=== PATIENT | female | born 1995 | race Caucasian/White ===

== ENCOUNTER 2017-06-07 23:32 | Observation (INO) ==
--- OUTSIDE RECORDS SUMMARY | 2017-06-08 00:06 | External Medical Summary | Referral Summary ---
:1995 Author Organization [facility] Address [address] [place] [address] [place] García [id number] Care Team Providers Name Role Phone Yves Sanchez Primary Care Physician Encounter [facility] [phone] Date(s): 04/28/16 - 04/28/16 [facility] [address] [place] [address] [place] García [phone] Discharge Diagnosis: Chronic GERD Discharge Diagnosis: Epigastric pain Discharge Disposition: 01-Home or Self Care Attending Physician: Scott Conrad MD Admitting Physician: Scott Conrad MD Referring Physician: Yves Sanchez MD Vital Signs Most recent to oldest [Reference Range]: 1 Temperature Tympanic [36.6-38.1 degC] 37 degC (04/28/16 3:13 PM) Blood Pressure [90-140/60-90 mmHg] 100/60 mmHg (04/28/16 3:13 PM) Problem List Condition Effective Dates Status Health Status Informant GERD (gastroesophageal reflux Active disease)(Confirmed) Allergies, Adverse Reactions, Alerts Substance Reaction Severity Status acetaminophen Active Medications fluticasone 50 mcg/inh nasal spray 2 sprays, Nasal, Daily, # 16 g, 0 Refill(s) Start Date: 04/28/16 Status: Orderedmultivitamin 1 tabs, Oral, Daily, # 30 tabs, 0 Refill(s) Start Date: 04/28/16 Stop Date: 05/28/16 Status: Ordered Results No data available for this section Immunizations No data available for this section Procedures Procedure Date Related Diagnosis Body Site None Social History Social History Type Response Smoking Status Never smoker Assessment and Plan Extracted from: Title: Ambulatory Patient Education Author: Scott Conrad MD Date: Family Medicine Gastroesophageal Reflux Disease, Adult Gastroesophageal reflux disease (GERD) happens when acid from your stomach flows up into the esophagus. When acid comes in contact with the esophagus, the acid causes soreness (inflammation) in the esop hagus. Over time, GERD may create small holes (ulcers) in the lining of the esophagus. CAUSES Increased body weight. This puts pressure on the stomach, making acid rise from the stomach into the esophagus. Smoking. This increases acid production in the stomach. Drinking alcohol. This causes decreased pressure in the lower esophageal sphincter (valve or ring of muscle between the esophagus and stomach) , allowing acid from the stomach into the esophagus. Late evening meals and a full stomach. This increases pressure and acid production in the stomach. A malformed lower esophageal sphincter. Sometimes, no cause is found. SYMPTOMS Burning pain in the lower part of the mid-chest behind the breastbone and in the mid-stomach area. This may occur twice a week or more often. Trouble swallowing. Sore throat. Dry cough. Asthma-like symptoms including chest tightness, shortness of breath, or wheezing. DIAGNOSIS Your caregiver may be able to diagnose GERD based on your symptoms. In some cases, X-rays and other tests may be done to check for complications or to check the condition of your stomach and esophagus. TREATMENT Your caregiver may recommend [id number]-[id number] or prescription medicines to help decrease acid production. Ask your caregiver before starting or adding any new medicines. HOME CARE INSTRUCTIONS Change the factors that you can control. Ask your caregiver for guidance concerning weight loss, quitting smoking, and alcohol consumption. Avoid foods and drinks that make your symptoms worse, such as: Caffeine or alcoholic drinks. Chocolate. Peppermint or mint flavorings. Garlic and onions. Spicy foods. [place] fruits, such as oranges, amanda, or limes. Tomato-based foods such as sauce, chili, salsa, and pizza. Fried and fatty foods. Avoid lying down for the 3 hours prior to your bedtime or prior to taking a nap. Eat small, frequent meals instead of large meals. Wear loose-fitting clothing. Do not wear anything tight around your waist that causes pressure on your stomach. Raise the head of your bed 6 to 8 inches with wood blocks to help you sleep. Extra pillows will not help. Only take yloa-mzm-ylydiuk or prescription medicines for pain, discomfort, or fever as directed by your caregiver. Do not take aspirin, ibuprofen, or other nonsteroidal anti-inflammatory drugs (NSAIDs). SEEK IMMEDIATE MEDICAL CARE IF: You have pain in your arms, neck, jaw, teeth, or back. Your pain increases or changes in intensity or duration. You develop nausea, vomiting, or sweating (diaphoresis). You develop shortness of breath, or you faint. Your vomit is green, yellow, black, or looks like coffee grounds or blood. Your stool is red, bloody, or black. These symptoms could be signs of other problems, such as heart disease, gastric bleeding, or esophageal bleeding. MAKE SURE YOU: Understand these instructions. Will watch your condition. Will get help right away if you are not doing well or get worse. This information is not intended to replace advice given to you by your health care provider. Make sure you discuss any questions you have with your health care provider. Document Released: 06/09/2006 Document Revised: 09/20/2015 Document Reviewed: 03/18/2012 [facility] [place] Patient Information 2016 [place]. No follow up information was provided. Extracted from: Title: Office Visit Note Author: Scott Conrad MD Date: 04/28/16 Assessment/Plan 1.Epigastric pain Ordered: Office Visit Level 4 New 25294 2.Chronic GERD Ordered: Office Visit Level 4 New 56224 Plan:Esophagogastroduodenoscopy I did review the patient's chart including office note performed by her PCPs circular saw filer fromApril 08, 2016. I informed the patient that I would recommend that we would proceed with esophagogas troduodenoscopy for further evaluation of herhistory for GERD/epigastric abdominal painwhich has became refractory to medical management. Risk of endoscopy was discussed with the patient. Risks include but are not inclusive of bleeding and/or perforation requiring surgery. Patient understood and was scheduled.
--- OUTSIDE RECORDS SUMMARY | 2017-06-08 00:06 | External Medical Summary | Continuity of Care Document ---
:1995 Author Organization [facility] Care Team Providers Name Role Phone NATHAN MCQUEEN Unavailable Unavailable Insurance Providers Payer Name Policy Number Subscriber Name Relationship Covcharli [id number] Franca Dill 17 Self / Same As Patient Chief Complaint and Reason for Visit Chief Complaint GI Complaint Reason for Visit Gastroenteritis Problems Medical Problems Problem Onset Date Status Gastroenteritis Unknown Active Medications Medication Dose Route Sig Days/Qty Instructions Order Discontinued Status Date Date Buspirone HCl 15 Mg ORAL NEEDED Active (Buspar) For 5 Anxiety Ondansetron 4 Mg ORAL EVERY 6 4 Qty Active Hcl HOURS PRN 5 NAUSEA Social History No social history. Hospital Discharge Instructions No hospital discharge instructions. Plan of Care Discharge Date 04/08/15 3:10pm Disposition 01 HOME OR SELF-CARE Condition at Discharge Stable Instructions/Education Provided Loperamide (By mouth) Ondansetron (By mouth, Into the mouth) Gastroenteritis (ED) Prescriptions See Medications Section Referrals NATHAN MCQUEEN Additional Instructions/Education Observe a clear liquid diet today, then if your nausea has resolved, you may slowly advance your diet as tolerated. If your vomiting comes back, see your doctor or return to the ER. Take Imodium as needed for diarrhea. Take Prilosec or equivalent 20 mg daily for a week to decrease stomach acid and help your stomach heal. Some of your test results may not be complete prior to your leaving the Emergency Department. The Emergency Department is not authorized to give test results over the phone. Please contact the doctor's office listed in this packet of information for your final results. Follow up with your primary care physician or return to the Emergency Department for worsening or worrisome symptoms. * Emergency Department phone number: [phone], x [phone]* MEDICAL RECORD If you need copies of your X-rays, call [phone]. If you need copies of your medical record, including lab results, a signed authorization for release of records will be required. A telephone call for release of Health Information is not allowed. BILLING Billing can sometimes be confusing and frustrating. To help avoid confusion in the future, please take a moment to acquaint yourself with the billing parties for services. SERVICE BILLING LIBERTARIAN Emergency Room Services [facility] Physician Services [facility] X-rays [facility] Patients will receive bills for services from the appropriate provider. If you have any questions about your [facility] bill, our staff will be happy to assist you. Please call [phone], and ask for the billing department. THANK YOU for choosing [facility] as your emergency care provider! Functional Status No functional status results. Allergies, Adverse Reactions, Alerts Allergen Type Severity Reaction Status Last Updated Acetaminophen Allergy Mild migraines Active 04/08/15 Immunizations No immunization records. Vital Signs Acute Vital Signs Vital Response Date/Time Temperature (Fahrenheit) 98.1 Pulse 73 bpm Respirations 16 Height 5 ft 1 in Weight 108 lb Body Mass Index 20.0 kg/m^2 Results No known relevant diagnostic tests, laboratory data and/or discharge summary. Procedures No known history of procedures. Encounters Encounter Location Date/Time Registered Emergency Room [facility] 04/08/15 2:23pm Recent Diagnosis
--- OUTSIDE RECORDS SUMMARY | 2017-06-08 00:06 | External Medical Summary | Continuity of Care Document ---
:1995 Author Organization [facility] Allergies Active Description Code Type Severity Reaction Onset Reported/ Identified Relationship Clinical to Patient Status Yes acetaminophe F0060 Drug Mild migraines 04/08/2015 n [id number] Aller gy Medications Problems Date Dx Coded Attending Type Code Diagnosis Diagnosed By 04/08/2015 Ot 388.30 04/08/2015 Ot 388.70 04/08/2015 Ot 389.11 04/08/2015 MUSA SMART, Ot 787.03 LUCIANO Garvey 04/08/2015 MUSA SMART, Ot 787.91 LUCIANO Garvey 04/08/2015 MUSA SMART, Ot 789.06 LUCIANO Garvey Procedures Results Encounters ACCT Visit Discharge Status Pt. Type Provider Facility Loc./Unit Complaint No. Date/Time [id number] 04/08/2015 04/08/2015 DIS Emergency [facility] ED [id number] 14:23:00 15:10:00 [facility] LUCIANO [id number] 08/25/2012 Document [id number] 07:32:00 Registration
[2017-06-08] MEDS: SALINE FLUSH 10ml SYRINGE IVF PRN ×2 (01:07→11:54)
--- NOTE | 2017-06-08 01:28 | Emergency Department Report ---
Overdose HPI - General Chief Complaint: Overdose Stated Complaint: OD Time Seen by Provider: 06/07/17 23:57 - History of Present Illness HPI Narrative: 22-year-old female presents with Xanax overdose. Patient apparently sent a text to a friend stating that she wanted to and was taking Xanax to do it. She initially reported taking 5 Xanax now states she is not sure how many. She was brought in by EMS. Initially patient would not respond, would not speak to us. Her parents did come to the hospital. They adopted her as a baby. Her father states that she has been living with a family in town in order to not live with her mother currently. Apparently they unable to make it without yelling. She is able to indicate with him without issues. She has not had any previous suicide attempts as far as he knows. The last year or 2 they have not had as much medication with her. She did come for a day and a half to stay with them and just left this evening to go back home to sleep. Since arriving in the ER, she would follow commands but would not speak. One of the nurses was able to gain some trust with her and she then began speaking. She states she does not remember what she took or that she even sent a text. She does say she has wanted to before because the anxiety is so bad. - Related Data Home Medications Medication Instructions Recorded Confirmed Cetirizine HCl [Zyrtec] 1 cap PO DAILY PRN #0 cap 05/07/16 06/08/17 Previous Rx's Medication Instructions Recorded norgestimate 0.25 mg-ethinyl 1 tab PO DAILY #28 tab 05/12/17 estradiol 35 mcg tablet Zoloft (sertraline) 100 mg tablet 100 mg PO Q24H #90 tab 05/21/17 Allergies Allergy/AdvReac Type Severity Reaction Status Date / Time acetaminophen AdvReac Mild MIGRAINES Verified 06/08/17 00:52 Review of Systems All systems: reviewed and negative except as stated PFSH Patient Stated Medical History Other GI Yes: POSSIBLE IBS, CURRENTLY BEING FOLLOWED BY PCP Hx Urinary Tract Infection Yes: FREQUENT Depression Yes Surgical History: Negative - Social History Smoking status: Never smoker Substance use type: does not use Physical Exam - Limitations Limitations: altered mental status (this seemed to improve during her stay in the emergency department. She was ultimately able to communicate with us, but states she has no memory of what she took or why she took it.) - General General appearance: appears intoxicated - Normal Exams: Head:: Normocephalic without trauma Chest/Respirations:: Clear all [place], with good airflow, and symmetry bilaterally Cardiovascular:: Regular rate and rhythm, without murmur or gallop, Pulses 2+ all extremities, capillary refill, <2 seconds all extremities Abdomen:: Bowel sounds positive, soft, non-tender, non-distended, no hepatosplenomegaly, masses or bruits noted Neurological:: cranial nerves, motor/sensory/cerebellar, exams w/o gross deficits, to observation - Psychiatric Psychiatric exam: Present: other (after speaking with the patient, I am not certain what she did or did not take. However she deftly has dilated pupils, somewhat slurred speech.) Course Vital Signs Temperature 98.3 F 06/07/17 23:32 Pulse Rate 102 H 06/07/17 23:32 Respiratory Rate 15 06/07/17 23:32 Blood Pressure 117/75 06/07/17 23:32 Pulse Oximetry 99 06/07/17 23:32 Temperature 98.3 F 06/07/17 23:32 Pulse Rate 111 H 06/08/17 00:00 Respiratory Rate 12 06/08/17 00:00 Blood Pressure 125/86 06/08/17 00:00 Pulse Oximetry 100 06/08/17 00:00 Overdose - MDM Narrative Medical decision making narrative: Urine drug screen returns negative. This is quite surprising based on the history of having taken extra Xanax and on her exam which shows dilated pupils and slurring of speech. There is some definite dynamics noted with family. Family appears to be wanting to be very supportive, but there is certainly some stress there. Patient states she wishes to sometimes because her anxiety becomes so bad. Remember if she took extra medication tonight or not. Her sertraline was recently increased to 100 mg daily. She also was treated for a UTI, took one dose of Bactrim but did not continue it. She is being referred to urology now. UA does not show obvious infection. Patient was given IV and fluid resuscitation . EKG was normal. Computer read some possible atrial enlargement possible right ventricular conduction delay, I did not notice either in the actual EKG. Hospitalist was contacted, patient will be admitted to ICU for observation until morning. This is to ensure that any drugs that are in her system are clear to out and that she is stable and safe for discharge. Plan is to have psych eval/screening prior to discharge to determine appropriateness of care. - Differential Diagnosis Likely: suicide attempt by multiple drug overdose, poisoning by opiate or related narcotic, drug overdose, acetaminophen overdose, accidental drug ingestion - Lab Data Result diagrams: 06/08/17 00:31 06/08/17 00:31 Lab Results 06/08/17 06/08/17 06/08/17 Range/Units 00:23 00:23 00:31 WBC 16.9 H (4.5-11.0) T/MM3 RBC 4.99 (4.00-5.20) M/MM3 Hgb 14.8 (12-16) GM/DL Hct 43.9 (36-46) % MCV 88.0 (80-100) UM3 MCH 29.7 (26-34) UUG MCHC 33.7 (31-37) GM/DL RDW Std Deviation 38.8 (36.9-50.2) FL Plt Count 284 (130-400) T/MM3 MPV 10.4 (9.4-12.4) UM3 Immature Gran % (Auto) Not performed Neut % (Auto) Not performed Lymph % (Auto) Not performed [place] % (Auto) Not performed Eos % (Auto) Not performed Baso % (Auto) Not performed Neut # Not performed Lymph # Not performed [place] # Not performed Eos # Not performed Baso # Not performed Abs Immat Gran (auto) Not performed Neutrophils % (Manual) 92.0 H (33-66) % Lymphocytes % (Manual) 7.0 L (23-45) % Monocytes % (Manual) 1.0 (0-9.0) % Neutrophils # (Manual) 15.5 H (1.8-7.7) T/MM3 Lymphocytes # (Manual) 1.2 (1-4.8) T/MM3 Monocytes # (Manual) 0.2 (0-0.8) T/MM3 RBC Morph Comment Normal Turbidity (0-20) Sodium (134-144) MEQ/L Potassium (3.6-5) MEQ/L Chloride (98-107) MEQ/L Carbon Dioxide (22-30) MEQ/L Anion Gap (5-15) MEQ/L BUN (7-17) MG/DL Creatinine (0.7-1.2) MG/DL GFR Calculation BUN/Creatinine Ratio (6-26) RATIO Glucose (65-110) MG/DL Calculated Osmolality (261-280) MOSM/KG Calcium (8.4-10.2) MG/DL Total Bilirubin (0.20-1.30) MG/DL Icterus Index (0-7) AST (14-36) U/L ALT (9-52) U/L Alkaline Phosphatase (38-126) U/L Total Protein (6.3-8.2) G/DL Albumin (3.5-5.0) G/DL Globulin (2.4-3.6) G/DL Albumin/Globulin Ratio (1.1-2.2) RATIO Serum , Qual (Negative) Specimen Hemolysis (0-25) Ur Collection Type Urine, clean catch Urine Color Yellow (YELLOW) Urine Clarity Clear Urine pH 5.5 (5.0-8.0) Ur Specific [place] >=1.030 H (1.015-1.025) Urine Protein Trace A (NEGATIVE) Urine Glucose (UA) Negative (NEGATIVE) Urine Ketones Negative (NEGATIVE) Urine Occult Blood Negative (NEGATIVE) Urine Nitrate Negative (NEGATIVE) Urine Bilirubin Negative (NEGATIVE) Urine Urobilinogen 0.2 (NORMAL) EU/DL Ur Leukocyte Esterase Trace A (NEGATIVE) Urinalysis Comment Microscopic not ind. Salicylates (2-20) MG/DL Urine Opiates Screen Negative ng/mL Ur Oxycodone Screen Negative ng/mL Urine Methadone Screen Negative ng/mL Ur Propoxyphene Screen Negative ng/mL Acetaminophen (10-30) UG/ML Ur Barbiturates Screen Negative ng/mL U Tricyclic Antidepress Negative ng/mL Ur Phencyclidine Scrn Negative ng/mL Ur Amphetamines Screen Negative ng/mL U Methamphetamines Scrn Negative ng/mL U Benzodiazepines Scrn Negative ng/mL Urine Cocaine Screen Negative ng/mL U Cannabinoids Screen Negative ng/mL Alcohol, Quantitative (<10) MG/DL 06/08/17 06/08/17 Range/Units 00:31 00:31 WBC (4.5-11.0) T/MM3 RBC (4.00-5.20) M/MM3 Hgb (12-16) GM/DL Hct (36-46) % MCV (80-100) UM3 MCH (26-34) UUG MCHC (31-37) GM/DL RDW Std Deviation (36.9-50.2) FL Plt Count (130-400) T/MM3 MPV (9.4-12.4) UM3 Immature Gran % (Auto) Neut % (Auto) Lymph % (Auto) [place] % (Auto) Eos % (Auto) Baso % (Auto) Neut # Lymph # [place] # Eos # Baso # Abs Immat Gran (auto) Neutrophils % (Manual) (33-66) % Lymphocytes % (Manual) (23-45) % Monocytes % (Manual) (0-9.0) % Neutrophils # (Manual) (1.8-7.7) T/MM3 Lymphocytes # (Manual) (1-4.8) T/MM3 Monocytes # (Manual) (0-0.8) T/MM3 RBC Morph Comment Turbidity < 20 (0-20) Sodium 144 (134-144) MEQ/L Potassium 3.3 L (3.6-5) MEQ/L Chloride 105 (98-107) MEQ/L Carbon Dioxide 24 (22-30) MEQ/L Anion Gap 15 (5-15) MEQ/L BUN 13.0 (7-17) MG/DL Creatinine 0.7 (0.7-1.2) MG/DL GFR Calculation 104 BUN/Creatinine Ratio 19 (6-26) RATIO Glucose 115 H (65-110) MG/DL Calculated Osmolality 278 (261-280) MOSM/KG Calcium 9.6 (8.4-10.2) MG/DL Total Bilirubin 0.80 (0.20-1.30) MG/DL Icterus Index < 2 (0-7) AST 21 (14-36) U/L ALT 31 (9-52) U/L Alkaline Phosphatase 69 (38-126) U/L Total Protein 7.8 (6.3-8.2) G/DL Albumin 4.8 (3.5-5.0) G/DL Globulin 3.0 (2.4-3.6) G/DL Albumin/Globulin Ratio 1.6 (1.1-2.2) RATIO Serum , Qual Negative (Negative) Specimen Hemolysis < 15 (0-25) Ur Collection Type Urine Color (YELLOW) Urine Clarity Urine pH (5.0-8.0) Ur Specific [place] (1.015-1.025) Urine Protein (NEGATIVE) Urine Glucose (UA) (NEGATIVE) Urine Ketones (NEGATIVE) Urine Occult Blood (NEGATIVE) Urine Nitrate (NEGATIVE) Urine Bilirubin (NEGATIVE) Urine Urobilinogen (NORMAL) EU/DL Ur Leukocyte Esterase (NEGATIVE) Urinalysis Comment Salicylates < 1.0 L (2-20) MG/DL Urine Opiates Screen ng/mL Ur Oxycodone Screen ng/mL Urine Methadone Screen ng/mL Ur Propoxyphene Screen ng/mL Acetaminophen < 10 L (10-30) UG/ML Ur Barbiturates Screen ng/mL U Tricyclic Antidepress ng/mL Ur Phencyclidine Scrn ng/mL Ur Amphetamines Screen ng/mL U Methamphetamines Scrn ng/mL U Benzodiazepines Scrn ng/mL Urine Cocaine Screen ng/mL U Cannabinoids Screen ng/mL Alcohol, Quantitative <10 (<10) MG/DL Disposition Clinical Impression: Drug overdose [place]: 02 [place] [facility] [place] Care Condition: Stable Prescriptions: No Action Cetirizine HCl [Zyrtec] 1 cap PO DAILY PRN #0 cap PRN Reason: PRN ORDERS norgestimate 0.25 mg-ethinyl estradiol 35 mcg tablet 1 tab PO DAILY #28 tab Zoloft (sertraline) 100 mg tablet 100 mg PO Q24H #90 tab Time of Disposition: 01:34 - Seen By: physician
[2017-06-08] MEDS ORDERED: CETIRIZINE 10 MG TABLET PO PRN (02:22)
[2017-06-08] MEDS ORDERED: SERTRALINE 100 MG TABLET PO SCH (02:22)
[2017-06-08] MEDS ORDERED: ONDANSETRON 4 MG/2 ML INJECTION IVP PRN (02:22)
[2017-06-08 02:26] VITALS: BMI 18.8
--- NOTE | 2017-06-08 03:15 | History & Physical Report ---
<Harpreet Glass I - Last Filed: 06/08/17 03:10> History of Present Illness Date: 06/08/17 Chief complaint: I don't remember what happened HPI: Franca is a pleasant, somewhat histrionic 22 year old CF pt who presented to the ER with a possible Xanax ingestion up to 5 tablets in an attempt to harm herself. Apparently she sent a text to her friend stating that she was going to do this to hurt or kill herself. She admits to having severe anxiety with ' panic attacks,' and fears this may be what happened tonight but she's not sure and states that she doesn't remember the events that preceded her ER visit. "Sometimes I get so anxious that I panic and black out. I remember waking up and I was in the hospital!" In the ER, she was initially described as minimally responsive and avoidant, though at no time was she felt to be in respiratory compromise. Her UDS proved to be negative for benzodiazepines, but due to her depressed mental status at the time, it was felt most appropriate to observe her overnight for serial examination and elucidation of the most appropriate disposition in the daylight hours. By the time she arrived on the floor when I saw her, she was alert, oriented, pleasant and smiling. Review of Systems - Constitutional Constitutional: Present: headache(s). Absent: fever(s) - EENMT Eyes: Absent: blurry vision, change in vision - Cardiovascular Cardiovascular: Absent: chest pain, palpitations, syncope - Respiratory Respiratory: Absent: cough - Gastrointestinal Gastrointestinal: Absent: abdominal pain - Genitourinary Genitourinary: Present: dysuria (And hematuria, for which she has a urology appointment already established in the near future) - Neurological Neurological: Absent: abnormal speech, focal weakness - Psychiatric Psychiatric: Present: anxiety, panic attacks, suicidal ideation [facility] Patient Stated Medical History Other GI Yes: POSSIBLE IBS, CURRENTLY BEING FOLLOWED BY PCP Hx Urinary Tract Infection Yes: FREQUENT Depression Yes Surgical History: Negative Family History: DM, Anxiety, she was apparently adopted but mother has MS - Social History Smoking status: Never smoker Substance use type: does not use Alcohol intake: current (Rare, not to intoxication) Alcohol intake frequency: holidays/special occasions only Medications Home Medications Medication Instructions Recorded Confirmed Type Cetirizine HCl [Zyrtec] 1 cap PO DAILY PRN #0 cap 05/07/16 06/08/17 History Allergies Allergy/AdvReac Type Severity Reaction Status Date / Time acetaminophen AdvReac Mild MIGRAINES Verified 06/08/17 00:52 Exam Vital Signs: Temperature 98.7 F 06/08/17 02:15 Pulse Rate 100 06/08/17 02:06 Respiratory Rate 12 06/08/17 02:00 Blood Pressure 121/78 06/08/17 02:00 Pulse Oximetry 99 06/08/17 02:00 Telemetry Rhythm: Sinus Rhythm Height/Weight/BMI: Height 5 ft 2 in Weight 46.8 kg Body Mass Index 18.8 - Constitutional Present: no acute distress, well nourished, well developed - Routine HEENT Exam Head: Present: normocephalic, atraumatic Eye: Present: EOMI, PERRL ENT: Present: mucous membranes moist - Routine Neck Exam Present: supple, full ROM. Absent: JVD - Routine Respiratory Exam Present: respiratory distress. Absent: accessory muscle use, dyspnea - Routine Cardiovascular Exam Present: RRR, S1, S2, no murmur - Routine Skin Exam Present: intact. Absent: lesions, rash - Routine Neurological Exam Present: alert, oriented X3, CN II-XII intact. Absent: sensory deficit, motor deficit - Routine Psychiatric Exam Present: anxious. Absent: suicidal ideation - Additional findings Additional findings: Examination performed using telemedicine equipment with the assistance of the bedside RN Results - Labs CBC & Chem 7: 06/08/17 00:31 06/08/17 00:31 Assessment and Plan (1) Drug overdose Current visit: Yes Status: Acute Ms. Dill may or may not have ingested Xanax in an attempt to harm herself last evening. It does appear clear that she has anxiety and is apprehensive about speaking of certain details of the events from prior to her arrival. She did admit that at times her anxiety/panic feelings make her want to , she has never had a similar attempt/gesture with overdose in the past. She was described be the ER as initially being quite somnolent and appearing intoxicated , this could fit with a short acting benzodiazepine as several hours later when I assessed her she was A&O, pleasant. Plan to observe overnight and consult case management/psych screener for further evaluations and elucidation of an appropriate disposition. POC was discussed with the patient at the time of my evaluation and she expressed understanding and a desire to proceed. Will provide further symptommatic, supportive, and diagnostic cares as the current workup, or changes in her clinical scenario indicate. 06/08/17 03:21 Hospital Course Summary Disclaimer: The visit summary below is not to be considered part of the above Progress Note. <Beltran Granda - Last Filed: 06/08/17 11:01> History of Present Illness Date: 06/08/17 [facility] Patient Stated Medical History Other GI Yes: POSSIBLE IBS, CURRENTLY BEING FOLLOWED BY PCP Hx Urinary Tract Infection Yes: FREQUENT Depression Yes Exam Vital Signs: Temperature 99.7 F 06/08/17 07:00 Pulse Rate 73 06/08/17 08:00 Respiratory Rate 20 06/08/17 08:00 Blood Pressure 116/76 06/08/17 08:00 Pulse Oximetry 99 06/08/17 08:00 Height/Weight/BMI: Height 1.57 m Weight 47.1 kg Body Mass Index 18.8 Results - Labs CBC & Chem 7: 06/08/17 00:31 06/08/17 00:31 Assessment and Plan (1) Drug overdose Current visit: Yes Status: Acute Resuscitation Status: Full Code Assessment and Plan: Have independently interviewed and examined pt. Chart reviewed. Above note reviewed and concur. CC: Anxiety/panic. Xanax overdose. HPI: 22 y/o WF present to [facility] [place] secondary to Xanax overdose. Patient has no clear recollection of what happened. Remembers driving home from parents last night. Know was having problems with increased anxiety and panic-when these symptoms occur, she'll 'disconnect' - will be functional, but have no recollection of what happens. Initially reported to ED than she took 5 Xanax, but later uncertain how much she took. Medically, has been having bowel problems - will eat and 'it goes right though me.' No blood in stool. Notes ab cramping and bloating. Was feeling very sick at stomach yesterday. Also, found recently to have microscopic hematuria - to see urologist in near future. Initially withdrawn in ED. Has since opened up. PMHx: Depression/anxiety/panic. ALL: Tylenol Med: see mar SHx: . Lives with friends. No smoke. Denies recent ETOH. Denies drug use. FHx: Adopted. Mother has MS ROS: As in HPI. Gen: slight chills before admission. Lungs: minor cough-no SOA or congestion. Ab: ab pain and diarrhea. Remainder of 10 point ROS reviewed and negative. EXAM GEN: WDWN petite female. Awake and alert. HEENT: NC/AT PERRLA EOMI MMM Neck: midline, supple. No tracheal deviation Lungs: Clear bilaterally. No crackles, wheezes or distress CV: tachy, regular. No murmur AB; soft nt/nd +BS EXT: thin and without edema Skin: warm and dry MS: Moves ext spontaneously NERUO: CN II-XII intact. No focal deficits PSYCH: awake alert appropriate. Thoughts linear. Communicates well. Not agitated or restless Lab: reviewed Assessment: Xanax overdose - ? intensional vs unintentional Depression/anxiety/panic Leukocytosis Hypokalemia (POS) Recent microscopic hematuria - UA normal at presentation Diarrhea - likely irritable bowel Plan OBS in CCU for close monitoring, safe supportive environment. Continue home medications. Regular diet. Replace potassium. Check TSH secondary to depression. Psych consult for treatment recommendations. Hospital Course Summary Disclaimer: The visit summary below is not to be considered part of the above Progress Note. Hospital Course: 06/08/17 OBS Assessment: Xanax overdose - ? intensional vs unintentional Depression/anxiety/panic Leukocytosis Hypokalemia (POS) Recent microscopic hematuria - UA normal at presentation Diarrhea - likely irritable bowel Plan OBS in CCU for close monitoring, safe supportive environment. Continue home medications. Regular diet. Replace potassium. Check TSH secondary to depression. Psych consult for treatment recommendations.
--- NOTE | 2017-06-08 22:29 | 24 Hour Neuropsychiatic Eval ---
Date of Admission: 06/08/17 01:21 Chief complaint: "I dont know what happened" History of Present Illness: 22 Y/O CF with a hx of Depression and anxiety seen in ICU after intentional OD on 5 Zoloft in a SA. PT reportedly had a panic attack and took the OD with the intent of harming herself. She then texted several friends and told them she had intent to harm herself and ambulance was called. On face to face the pt states she was having a panic attack and "blacked out" and does not remember the events. She states she does not remember if she was trying to harm herself or not. She denies S/I but is impulsive and parents do not feel she is safe to go home. STRESSORS: PT states she has had numerous losses in the last few years and has a long hx of anxiety and depression. PSYCH ROS: Pt does report feeling depressed with low energy and motivation, decreased interest, issues with sleep and appetite, and feelings of guilt. She reports she was having S/I last night. She reports having panic attacks which are unprovoked. She reports a hx of trauma as an adult and reports some nightmares, flashbacks, and hypervigilance. Reports a one week period where she had a decreased need for sleep and high energy which was outside her norm several years ago but it did not cause major distress. Denies psychosis. PAST PSYCH: Prescribed Zoloft 100mg by PCP and feels it is helpful. Reports taking antidepressants as a teen but not sure of the name. Hx of depression since age 13. Never tried to harm herself and has never been hospitalized. SUBSTANCE ABUSE: Denies [facility] Patient Stated Medical History Other GI Yes: POSSIBLE IBS, CURRENTLY BEING FOLLOWED BY PCP Hx Urinary Tract Infection Yes: FREQUENT Depression Yes Surgical History: Negative - Social History Smoking status: Never smoker Review of Systems - Psychiatric Psychiatric: Present: as per HPI, anxiety, depression, mood swings Mental Status Exam Vitals: Last Vital Signs Temp 98.1 F 06/08/17 11:08 Pulse 74 06/08/17 16:23 Resp 17 06/08/17 16:00 BP 116/73 06/08/17 16:00 Pulse Ox 99 06/08/17 11:08 Height: 1.57 m Weight: 47.1 kg - Mental Status Exam Muscle Strength/Tone: Normal Dressing: Casual Grooming: Good Attitude: Guarded Motor Activity: Retardation Eye Contact: Fair Speech: Normal Volume: Normal Rhythm: Appropriate Rhythm Orientation: Oriented X4 Mood: Depressed Affect: Sad Rate of Thoughts: Appropriate Rate Thought Organization: Organized Associations: Intact Abstract Reasoning: Poor abstract reasoning Thought Content: Normal Perception/Psychotic: Perception Normal Language: Naming Intact Memory: Grossly Intact Suicidal Ideation: Intermittent Homicidal Ideation: None Insight: Poor Judgement: Poor Impulse Control: Poor - Laboratory Result Diagrams: 06/08/17 00:31 06/08/17 00:31 Assessment and Plan (1) Major depressive disorder Qualifiers: Major depression recurrence: recurrent Major depression episode severity: severe Current visit: Yes Status: Acute Continue medical management. Discussed case with parents who does not feel pt is safe to go home. Recommend IP psych treatment when medically stable. Pt is not allowed to leave AMA
--- NOTE | 2017-06-09 11:46 | Progress Note ---
Subjective: F/U: Alprazolam overdose Doing well medically today. Breathing well. Eating well. No ab pain. Urinating well. No f/c. Stable when up and ambulatory. Objective Vital signs: Temperature 97.4 F 06/09/17 08:00 Pulse Rate 99 06/09/17 08:00 Respiratory Rate 16 06/09/17 08:00 Blood Pressure 112/76 06/09/17 08:00 Pulse Oximetry 99 06/09/17 08:00 Height/Weight/BMI: Height 1.57 m Weight 47.5 kg Body Mass Index 18.8 - Constitutional Present: no acute distress, well nourished, well developed, cooperative. Absent : somnolent, obtunded - Routine HEENT Exam Head: Present: normocephalic, atraumatic Eye: Present: EOMI, PERRL ENT: Present: mucous membranes moist - Routine Respiratory Exam Present: CTA bilaterally. Absent: respiratory distress, wheezes, crackles - Routine Cardiovascular Exam Present: RRR, no murmur - Routine Abdominal Exam Present: soft, normoactive bowel sounds, non distended, non tender - Routine Extremities Exam Present: no edema. Absent: cyanosis, clubbing - Routine Musculoskeletal Exam Musculoskeletal: Present: no clubbing or cyanosis, normal strength - Routine Skin Exam Present: dry, warm - Routine Neurological Exam Present: alert, oriented X3, CN II-XII intact, moving all extremities, vision grossly intact, hearing grossly intact. Absent: altered mental status - Routine Psychiatric Exam Present: normal affect. Absent: anxious, agitated Results - Labs CBC & Chem 7: 06/09/17 05:02 06/09/17 05:02 Assessment and Plan (1) Drug overdose Current visit: Yes Status: Acute DVT Prophylaxis: SCD's Resuscitation Status: Full Code Assessment and Plan: Assessment: Overdose ? Xanax or Zoloft Suspect Zoloft. No adverse sequela of overdose. Medically stable. Depression/anxiety/panic Leukocytosis (POA) - resolved, suspect stress reaction. Hypokalemia (POA) - resolved Recent microscopic hematuria - UA normal at presentation Diarrhea - likely irritable bowel Plan Psych did evaluated patient yesterday evening. Dx: Major depressive disorder- recurrent, severe, acute Recommend: Continue medical management. Discussed case with parents who does not feel pt is safe to go home. Recommend IP psych treatment when medically stable. Pt is not allowed to leave AMA. Medically stable. Leukocytosis resolved - suspect stress reaction. Potassium normalized. Vitals stable. No acute medical needs or conditions that would required further inpatient medical treatment. Arrangements being made for inpatient psychiatric treatment. Anticipate discharge in near future to [place] for treatment. Discussed case with Huy Chappell at . Reviewed lab and patient's status. Discussed issues patient has with her mother. Patient accepted to for continuation of psychiatric care and treatment. Will transport via [facility]. Medically stable for discharge to for care. See orders for details. Case discussed with CM and CCU nursing. Hospital Course Summary Disclaimer: The visit summary below is not to be considered part of the above Progress Note. Hospital Course: 06/08/17 OBS Assessment: Overdose - ? intensional vs unintentional ? Xanax vs Zoloft. Depression/anxiety/panic Leukocytosis Hypokalemia (POA) Recent microscopic hematuria - UA normal at presentation Diarrhea - likely irritable bowel Plan OBS in CCU for close monitoring, safe supportive environment. Continue home medications. Regular diet. Replace potassium. Check TSH secondary to depression. Psych consult for treatment recommendations. 06/09/17 Psych did evaluated patient yesterday evening. Dx: Major depressive disorder- recurrent, severe, acute Recommend: Continue medical management. Discussed case with parents who does not feel pt is safe to go home. Recommend IP psych treatment when medically stable. Pt is not allowed to leave AMA. Medically stable. Leukocytosis resolved - suspect stress reaction. Potassium normalized. Vitals stable. No acute medical needs or conditions that would required further inpatient medical treatment. Arrangements being made for inpatient psychiatric treatment. Anticipate discharge in near future to [place] for treatment. 06/09/17 14:16 Discussed case with Huy Chappell at . Reviewed lab and patient's status. Discussed issues patient has with her mother. Patient accepted to for continuation of psychiatric care and treatment. Will transport via [facility]. Medically stable for discharge to for care. See orders for details.
[2017-06-09 12:22] VITALS: TEMP 98.1
--- NOTE | 2017-06-09 14:21 | Discharge Summary ---
Discharge Information Date of admission: 06/08/17 01:21 Anticipated date of discharge: 06/09/17 Attending Physician: Dr Granda Primary care physician: Sondra Estrada APRN Consults: Case Management Consult Reason For Exam: Mental health screen, disposition planning bibiana Cooney Physician Consult: Tabitha Blackmon Reason For Exam: Xanax overdose-? SI - Discharge Diagnosis (1) Drug overdose Status: Acute Discharge Diagnosis: Discharge diagnosis Drug Overdose ? Xanax or Zoloft Suspect Zoloft. No adverse sequela of overdose. Medically stable. Associated conditions and complications MDD, recurrent, severe Leukocytosis (POA) - resolved, suspect stress reaction. Hypokalemia (POA) - resolved Recent microscopic hematuria - UA normal at presentation Diarrhea - likely irritable bowel - Procedures Procedures: CCU monitoring due to psychiatric care needs - Laboratory Labs: Admit Lab 06/08/17 00:31 WBC 16.9 H Hgb 14.8 Hct 43.9 MCV 88.0 Plt Count 284 Neutrophils % (Manual) 92.0 H Lymphocytes % (Manual) 7.0 L Admit Lab 06/08/17 00:31 Sodium 144 Potassium 3.3 L Chloride 105 Carbon Dioxide 24 Anion Gap 15 BUN 13.0 Creatinine 0.7 GFR Calculation 104 Glucose 115 H Calculated Osmolality 278 Calcium 9.6 Total Bilirubin 0.80 AST 21 ALT 31 Albumin 4.8 Other Labs 06/08/17 06/08/17 00:31 00:31 TSH 1.41 Serum , Qual Negative UDS/ETOH 06/08/17 06/08/17 00:23 00:31 Salicylates < 1.0 L Urine Opiates Screen Negative Ur Oxycodone Screen Negative Urine Methadone Screen Negative Ur Propoxyphene Screen Negative Acetaminophen < 10 L Ur Barbiturates Screen Negative U Tricyclic Antidepress Negative Ur Phencyclidine Scrn Negative Ur Amphetamines Screen Negative U Methamphetamines Scrn Negative U Benzodiazepines Scrn Negative Urine Cocaine Screen Negative U Cannabinoids Screen Negative Alcohol, Quantitative <10 UA 06/08/17 00:23 Urine Color Yellow Urine Clarity Clear Urine pH 5.5 Ur Specific Ideal >=1.030 H Urine Protein Trace A Urine Glucose (UA) Negative Urine Ketones Negative Urine Occult Blood Negative Urine Nitrate Negative Urine Bilirubin Negative 06/09/17 05:02 06/09/17 05:02 History of Present Illness HPI: Franca is a pleasant, somewhat histrionic 22 year old CF pt who presented to the ER with a possible Xanax ingestion up to 5 tablets in an attempt to harm herself. Apparently she sent a text to her friend stating that she was going to do this to hurt or kill herself. She admits to having severe anxiety with ' panic attacks,' and fears this may be what happened tonight but she's not sure and states that she doesn't remember the events that preceded her ER visit. "Sometimes I get so anxious that I panic and black out. I remember waking up and I was in the hospital!" In the ER, she was initially described as minimally responsive and avoidant, though at no time was she felt to be in respiratory compromise. Her UDS proved to be negative for benzodiazepines, but due to her depressed mental status at the time, it was felt most appropriate to observe her overnight for serial examination and elucidation of the most appropriate disposition in the daylight hours. By the time she arrived on the floor when I saw her, she was alert, oriented, pleasant and smiling. For complete details of the H&P refer to that document. Objective Vital signs: Temperature 98.1 F 06/09/17 12:00 Pulse Rate 88 06/09/17 12:23 Respiratory Rate 20 06/09/17 12:00 Blood Pressure 111/69 06/09/17 12:00 Pulse Oximetry 100 06/09/17 12:00 Height/Weight/BMI: Height 1.57 m Weight 47.5 kg Body Mass Index 18.8 Hospital Course This is a general summary of the patient's hospital course. For more details refer to the complete medical record. Hospital course: 06/08/17 OBS Assessment: Overdose - ? intensional vs unintentional ? Xanax vs Zoloft. Depression/anxiety/panic Leukocytosis Hypokalemia (POA) Recent microscopic hematuria - UA normal at presentation Diarrhea - likely irritable bowel Plan OBS in CCU for close monitoring, safe supportive environment. Continue home medications. Regular diet. Replace potassium. Check TSH secondary to depression. Psych consult for treatment recommendations. 06/09/17 Psych did evaluated patient yesterday evening. Dx: Major depressive disorder- recurrent, severe, acute Recommend: Continue medical management. Discussed case with parents who does not feel pt is safe to go home. Recommend IP psych treatment when medically stable. Pt is not allowed to leave AMA. Medically stable. Leukocytosis resolved - suspect stress reaction. Potassium normalized. Vitals stable. No acute medical needs or conditions that would required further inpatient medical treatment. Some uncertainty about what medication she took. Initial report of alprazolam, later report Zoloft. Clinically not consequential at this times as no lingering sequela of overdose noted. Biochemically stable. Mentation clear. Arrangements being made for inpatient psychiatric treatment. Anticipate discharge in near future to [place] for treatment. 06/09/17 14:16 Discussed case with Huy Chappell at . Reviewed lab and patient's status. Discussed issues patient has with her mother. Patient accepted to for continuation of psychiatric care and treatment. Will transport via [facility]. Medically stable for discharge to for care. See orders for details. Time spent with patient: discharge greater than 30 minutes DVT Prophylaxis: SCD's Discharge Plan - Med Rec/Dispo Referrals/Follow Up: Sondra Estrada APRN [Family Provider] - (Have outpatient follow up 1 week after discharge from ) Prescriptions: Continue RX: Cetirizine HCl [Zyrtec] 1 cap PO DAILY PRN #0 cap PRN Reason: PRN ORDERS norgestimate 0.25 mg-ethinyl estradiol 35 mcg tablet 1 tab PO DAILY #28 tab Zoloft (sertraline) 100 mg tablet 100 mg PO Q24H #90 tab Discharge Instructions/Outpatient Orders: Final Provider Discharge Instructions Location: Determined By Patient - Disposition 65 To Psych Hosp/Unit - Attestation Attestation Narrative: 06/09/17 14:28 I have independently interviewed and examined patient prior to discharge. See my progress note from today for details. Medically stable for discharge to [place] for continuation of psychiatric care.
[2017-06-09 15:49] VITALS: BP 115/69; PULSE 76; RESP 19; O2SAT 98
== END 2017-06-09 15:59 ==
LOC: ED 23:32 → CCU 06-08 01:21 → INTOOBSV 06-08 01:21 → OBSVTOIN 06-08 01:21 → CCU 06-08 02:13
PROVIDERS: ADMIT Internal Medicine; ATTEND Internal Medicine